=== PATIENT | male | born 1980 | race Caucasian/White ===

== ENCOUNTER → 2024-08-10 13:38 | Outpatient (REF) | payer OTHER, SELFPAY | LOC: HWRAD 13:38 | PROVIDERS: ATTENDING PHYSICIAN Surgery; FAMILY PHYSICIAN Internal Medicine; REFERRING PHYSICIAN Hospitalist | DX: N41.0 Acute prostatitis (principal); R39.12 Poor urinary stream | CPT/HCPCS: 76770 ==